=== PATIENT | female | born 1955 | race Caucasian/White ===

== ENCOUNTER 2022-07-17 17:34 | Inpatient (IN) | payer OTHER ==
[~2022-07-17] VITALS: Ht 154.9 cm; Wt 94.8 kg
--- NOTE | 2022-07-17 17:40 | NUR ---
Dr Samaniego at the bedside for MSE.
[2022-07-17] MEDS ORDERED: IV NORMAL SALINE 1000 ML BAG IV ONE (17:45)
[2022-07-17 18:11] LABS: HEMATOCRIT 36.5 % (31.2-41.9); MEAN CORPUSCULAR HEMOGLOBIN 30.6 uug (24.7-32.8); MEAN CORPUSCULAR VOLUME 93.6 fL (75.5-95.3); PLATELET COUNT (AUTO) 245 K/uL (179-408)
[2022-07-17 18:22] LABS: CARBON DIOXIDE 25 mmol/L (21-32); CHLORIDE 106 mmol/L (98-107); CREATININE 1.2 mg/dL (0.6-1.3); GLUCOSE 166 mg/dL (74-106); POTASSIUM 3.6 mmol/L (3.5-5.1); UREA NITROGEN, BLOOD 28 mg/dL (7-18)
[2022-07-17] MEDS ORDERED: CLON2TAB11 PO (18:22)
[2022-07-17] MEDS ORDERED: PROP10TA10 PO (18:22)
[2022-07-17] MEDS ORDERED: CYAN250010 PO (18:22)
[2022-07-17] MEDS ORDERED: OMEP40CA21 PO (18:22)
[2022-07-17] MEDS ORDERED: GLUC1TAB65 PO (18:22)
[2022-07-17] MEDS ORDERED: GABA800T11 PO (18:22)
[2022-07-17] MEDS ORDERED: SERT100T PO (18:22)
[2022-07-17] MEDS ORDERED: QUET400T PO (18:22)
[2022-07-17] MEDS ORDERED: MILN50TA PO (18:22)
[2022-07-17] MEDS ORDERED: ERGO400C PO (18:22)
[2022-07-17] MEDS ORDERED: IBUP-2314 PO (18:22)
[2022-07-17] MEDS ORDERED: LEVO125T68 PO (18:22)
[2022-07-17] MEDS ORDERED: TOPI200T16 PO (18:22)
[2022-07-17 18:28] LABS: ETHANOL < 3 MG/DL (0-0)
[2022-07-17 18:35] LABS: THYROID STIMULATING HORMONE 1.698 mIU/mL (0.358-3.740)
[2022-07-17 18:39] LABS: ALANINE AMINOTRANSFERASE 34 U/L (14-59); ALKALINE PHOSPHATASE 78 U/L (50-136); ASPARTATE AMINOTRANSFERASE 28 U/L (15-37); BILIRUBIN,DIRECT 0.2 mg/dL (0.0-0.2); BILIRUBIN,TOTAL 0.4 mg/dL (0.2-1.0); TOTAL PROTEIN, SERUM 7.2 g/dL (6.4-8.2)
--- NOTE | 2022-07-17 18:40 | NUR ---
Pt is out of ER for Ct scan.
[2022-07-17 18:52] LABS: ACETAMINOPHEN < 2.0 ug/mL (10-30)
--- NOTE | 2022-07-17 18:53 | NUR ---
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
[2022-07-17] MEDS ORDERED: levoFLOXacin 750 MG/D5W 150 ML PIGGYBACK IV ONE (19:00)
[2022-07-17] MEDS ORDERED: levoFLOXacin 750MG/D5W 150 ML IV ONE (19:03)
--- NOTE | 2022-07-17 19:12 | NUR ---
Per Dr Alvarez, patient not medically cleared for psych admission. Patient will be admitted for Pneumonia
[2022-07-17 19:46] LABS: *AMPHETAMINE, URINE NEGATIVE (NEGATIVE); *CANNABINOID, URINE NEGATIVE (NEGATIVE); *COCCAINE, URINE NEGATIVE (NEGATIVE); *PHENCYCLIDINE SCREEN,URINE NEGATIVE (NEGATIVE)
[2022-07-17 19:50] LABS: *BILIRUBIN,URIN NEGATIVE (NEGATIVE); *CLARITY,URINE CLEAR (CLEAR); *COLOR,URINE YELLOW (YELLOW); *KETONES,URINE NEGATIVE (NEGATIVE); *UROBILINOGEN,URINE 0.2 E.U./dl (NORMAL); LEUKOCYTE ESTERASE ,URINE TRACE (NEGATIVE); NITRITE, URINE NEGATIVE (NEGATIVE); PH,URINE 6.5 (5.0-8.0); UGLUCOSE NEGATIVE (NEGATIVE)
[2022-07-17 19:52] LABS: *BLOOD, URINE TRACE (NEGATIVE)
[2022-07-17 20:16] LABS: BACTERIA,URINE NONE SEEN /HPF (NONE SEEN); YEAST,URINE FEW /HPF (NONE SEEN)
--- NOTE | 2022-07-17 20:30 | NUR ---
Patient c/o dyspnea satting @94% on RA. MD notified. Patient placed on 2L 02 via NC
--- NOTE | 2022-07-17 22:02 | NUR ---
called [facility] for panel call. awaiting for Silke Marte NP to call back
--- NOTE | 2022-07-17 22:11 | NUR ---
Jocelyn PANTOMIMIST - educational manager.
--- NOTE | 2022-07-17 22:12 | NUR ---
Patient has been accepted by [facility]
[2022-07-17] MEDS ORDERED: QUETIAPINE FUMARATE 200 MG TABLET ONE (22:23)
[2022-07-17] MEDS ORDERED: GABAPENTIN 400 MG CAPSULE ONE (22:23)
--- NOTE | 2022-07-17 22:28 | NUR ---
Per patient's Daughter, hold patient home meds (Savella and clonazepam). As per patient's psych .
[2022-07-17] MEDS ORDERED: QUETIAPINE FUMARATE 25 MG TABLET PO ONE (22:30)
[2022-07-17] MEDS ORDERED: GABAPENTIN 400 MG CAPSULE PO ONE (22:30)
--- NOTE | 2022-07-17 22:44 | NUR ---
Endorsed to Grzegorz MENDEZ m/s
[2022-07-17] MEDS ORDERED: ACETAMINOPHEN 325 MG TABLET PO PRN (23:00)
[2022-07-17] MEDS ORDERED: ONDANSETRON 4 MG/2 ML VIAL IV PRN (23:00)
[2022-07-17] MEDS ORDERED: ZOLPIDEM 5 MG TABLET PO PRN (23:00)
[2022-07-17] MEDS ORDERED: REMEDY ESSENTIAL ZINC PASTE 113 GM TP PRN (23:00)
[2022-07-17] MEDS ORDERED: MAGNESIUM HYDROXIDE 30 ML LIQUID UDC PO PRN (23:00)
--- NOTE | 2022-07-17 23:05 | NUR ---
Pt. admitted to M/S room 304 , under care of Dr. Banks Belongs List completed Kimberly RN and Grzegorz RN aware of partient's arrival
--- NOTE | 2022-07-17 23:15 | NUR ---
PATIENT ADMITTED FROM ER IN STABLE CONDITION. GENTLY TRANSFERRED TO BED MADE COMFORTABLE. ALL NEEDS MET AND ATTENDED. NO SOB OR RESP DISTRESS NOTED. ALL BELONGINGS INVENTORIED.
[2022-07-18] MEDS: ENOXAPARIN SODIUM 40 MG/0.4 ML DISP.SYRIN SQ SCH ×2 (01:49→21:47)
[2022-07-18] MEDS ORDERED: CEFEPIME HCL 1 G VIAL ONE (04:44)
[2022-07-18] MEDS ORDERED: CEFEPIME HCL 1 G in IV DEXTROSE 5% 50 ML IV SCH (06:00)
--- NOTE | 2022-07-18 06:21 | NUR ---
MEDICATION RECEIVED FROM SURVEY SUPERINTENDENT CEFEPIME 2G VIAL FOR Q8H WAS DUE AT 6AM. MEDICATION DILUTED BUT UNFORTUNATELY D/C'D BY AND CHANGED THE TIME TO Q12HRS AND IS DUE NOW AT 9AM. MEDICATION WASTED AND WITNESSED BY CHARGE NURSE ESTEFANÍA. WILL ENDORSE TO DAY SHIFT RN
[2022-07-18 07:36] LABS: HEMATOCRIT 31.8 % (31.2-41.9); MEAN CORPUSCULAR HEMOGLOBIN 31.3 uug (24.7-32.8); PLATELET COUNT (AUTO) 223 K/uL (179-408)
--- NOTE | 2022-07-18 07:47 | NUR ---
Awake, alert, oriented x 4. Room air. Denies pain or shortness of breath
[2022-07-18 07:56] LABS: BILIRUBIN,TOTAL 0.4 mg/dL (0.2-1.0); CREATININE 1.1 mg/dL (0.6-1.3); MAGNESIUM 1.8 mg/dL (1.8-2.4); PHOSPHOROUS 3.3 mg/dL (2.5-4.9); POTASSIUM 3.6 mmol/L (3.5-5.1); TOTAL PROTEIN, SERUM 6.3 g/dL (6.4-8.2)
[2022-07-18 08:01] LABS: THYROID STIMULATING HORMONE 1.383 mIU/mL (0.358-3.740)
[2022-07-18] MEDS ORDERED: CEFEPIME HCL 2 G in IV DEXTROSE 5% 100 ML IV SCH (09:00)
[2022-07-18] MEDS ORDERED: PANTOPRAZOLE SODIUM 40 MG VIAL IV SCH (09:00)
--- NOTE | 2022-07-18 09:00 | NUR ---
Room air O2 sat 88-90%, placed O2 at 2L/NC with O2 sat of 95-97%.
[2022-07-18 12:00] VITALS: BP 106/62
[2022-07-18] MEDS ORDERED: AZITHROMYCIN IV 500 MG in IV DEXTROSE 5% 250 ML IV SCH (12:00)
[2022-07-18] MEDS: IBUPROFEN 400 MG TABLET PO PRN (12:23)
--- NOTE | 2022-07-18 12:25 | NUR ---
Reports of headache, Ibuprofen given with relief.
[2022-07-18] MEDS: GUAIFENESIN/DEXTROMETHORPHAN 5 ML UDC PO PRN (13:30)
--- NOTE | 2022-07-18 13:30 | NUR ---
With bout of cough, Robitussin DM given with relief
[2022-07-18 16:00] VITALS: BP 101/60
--- NOTE | 2022-07-18 16:51 | NUR ---
Daughter at bedside, expressed concern over condition and medication, discussed plan of care.
[2022-07-18] MEDS ORDERED: GABAPENTIN PO SCH (17:00)
[2022-07-18] MEDS: GABAPENTIN 400 MG CAPSULE PO SCH (17:22)
[2022-07-18] MEDS: SERTRALINE HCL 100 MG TABLET PO SCH (17:22)
[2022-07-18] MEDS ORDERED: POTA10TA10 PO (17:32)
--- NOTE | 2022-07-18 18:48 | NUR ---
Incontinence care done. Repositioned in bed comfortably. O2 at 2L/NC.
[2022-07-18 19:57] VITALS: BP 98/57
[2022-07-18] MEDS ORDERED: QUETIAPINE FUMARATE 400 MG PO SCH (21:00)
[2022-07-18] MEDS: CEFTRIAXONE 1 G in IV DEXTROSE 5% 50 ML IV SCH (21:30)
[2022-07-18] MEDS: QUETIAPINE FUMARATE 200 MG TABLET PO SCH (21:30)
[2022-07-18] MEDS: TOPIRAMATE 100 MG TABLET PO SCH (21:30)
[2022-07-18] MEDS: PROPRANOLOL HCL 10 MG TABLET PO SCH (21:31)
[2022-07-19 04:15] VITALS: BP 110/62
--- NOTE | 2022-07-19 05:53 | NUR ---
SHIFT NOTE: PT IS ALERT AND ORIENTED X4 AM CARE DONE ORDERED NO SIGNS OF RESPIRATORY DISTRESS NOTED. PATIENT DENIES PAIN PATIENT TURNED AND REPOSITIONED ORDERED. MEDICATION GIVEN ORDERED NO SIGNS OF ADVERSE REACTION FROM MEDICATION WILL ENDORSE TO AM NURSE AND FALL ALONG WITH SAFETY MAINTAINED THROUGHOUT SHIFT.
[2022-07-19] MEDS: PROPRANOLOL HCL 10 MG TABLET PO SCH ×3 (06:00→21:38)
[2022-07-19] MEDS: LEVOTHYROXINE SODIUM 125 MCG TABLET PO SCH (06:31)
[2022-07-19] MEDS: PANTOPRAZOLE SODIUM 40 MG TABLET.DR PO SCH (06:31)
[2022-07-19] MEDS ORDERED: FLUCONAZOLE 200 MG/NS 100ML IV 100 MG in PREMIXED 1 EACH IV ONE (08:04)
[2022-07-19 08:30] VITALS: BP 124/62
[2022-07-19] MEDS: DOXYCYCLINE HYCLATE IV 100 MG in IV DEXTROSE 5% 100 ML IV SCH ×2 (08:48→21:25)
[2022-07-19] MEDS: SERTRALINE HCL 100 MG TABLET PO SCH (08:49)
[2022-07-19] MEDS: CHOLECALCIFEROL 400 UNITS TABLET PO SCH (08:49)
[2022-07-19] MEDS: GABAPENTIN 400 MG CAPSULE PO SCH ×3 (08:49→17:34)
[2022-07-19] MEDS: CYANOCOBALAMIN 1,000 MCG TABLET PO SCH (08:49)
[2022-07-19] MEDS: TOPIRAMATE 100 MG TABLET PO SCH ×2 (08:49→21:25)
[2022-07-19] MEDS ORDERED: Medication Not On Formulary EA (Cholecalciferol (Vitamin D3) (Vitamin D3) 1 CAP) PO SCH (09:00)
[2022-07-19] MEDS ORDERED: MICAFUNGIN SODIUM 100 MG in IV NORMAL SALINE 100 ML IV ONE (09:00)
[2022-07-19] MEDS ORDERED: [UNRECOGNIZED DRUG - OTHER] PO SCH (09:00)
[2022-07-19] MEDS ORDERED: Medication Not On Formulary EA (Cyanocobalamin (Vitamin B-12) (Vitamin B12) 1,000 MCG) PO SCH (09:00)
[2022-07-19] MEDS: GUAIFENESIN/DEXTROMETHORPHAN 5 ML UDC PO PRN (09:02)
[2022-07-19 11:07] VITALS: BP 105/57
[2022-07-19] MEDS: POTASSIUM CHLORIDE 10 MEQ TAB.PRT.SR PO SCH ×2 (11:40→17:34)
[2022-07-19] MEDS: IBUPROFEN 400 MG TABLET PO PRN (11:40)
[2022-07-19 15:09] VITALS: BP 105/53
[2022-07-19 20:10] VITALS: BP 112/68
[2022-07-19] MEDS: CEFTRIAXONE 1 G in IV DEXTROSE 5% 50 ML IV SCH (21:24)
[2022-07-19] MEDS: QUETIAPINE FUMARATE 200 MG TABLET PO SCH (21:25)
[2022-07-19] MEDS: ENOXAPARIN SODIUM 40 MG/0.4 ML DISP.SYRIN SQ SCH (21:32)
[2022-07-20 04:28] VITALS: BP 113/62
--- NOTE | 2022-07-20 05:21 | NUR ---
SHIFT NOTE: RECEIVED REPORT FROM AM NURSE SACHI PT IS ALERT AND ORIENTED X4 PT STATES" I AM FEELING MUCH BETTER INFORMED PATIENT SHE IS LOOKING BETTER NO SIGNS OF RESPIRATORY DISTRESS NOTED. PATIENT DENIES PAIN. MEDICATION GIVEN ORDERED NO SIGNS OF RESPIRATORY DISTRESS NOTED. PLAN FOR PATIENT DISCHARGE TO SNF. PT SON WANTS A DR RODRIGUEZ TO CALL HIM AT [phone]. PERIWICK IN PLACE DRAINING CLEAR YELLOW URINE AND FALL AND SAFETY PRECAUTION MAINTAINED WILL ENDORSE TO AM NURSE.
[2022-07-20] MEDS: PANTOPRAZOLE SODIUM 40 MG TABLET.DR PO SCH (06:10)
[2022-07-20] MEDS: LEVOTHYROXINE SODIUM 125 MCG TABLET PO SCH (06:11)
[2022-07-20] MEDS: PROPRANOLOL HCL 10 MG TABLET PO SCH ×3 (06:11→22:13)
[2022-07-20 07:05] LABS: HEMATOCRIT 31.3 % (31.2-41.9); MEAN CORPUSCULAR HEMOGLOBIN 31.6 uug (24.7-32.8); MEAN CORPUSCULAR VOLUME 92.9 fL (75.5-95.3); PLATELET COUNT (AUTO) 217 K/uL (179-408)
[2022-07-20 07:27] LABS: BILIRUBIN,TOTAL 0.3 mg/dL (0.2-1.0); POTASSIUM 3.5 mmol/L (3.5-5.1); TOTAL PROTEIN, SERUM 6.4 g/dL (6.4-8.2)
[2022-07-20 08:00] VITALS: BP 120/71
--- NOTE | 2022-07-20 08:00 | NUR ---
gave report to am nurse Braulio informed her that patient iv hurts stated patient stop fluids and informed call for midline and assist patient to toilet observe gait she walks with a cane. no signs of distress noted.
--- NOTE | 2022-07-20 08:03 | NUR ---
Received pt. lying in bed awake, alert and oriented. No signs of distress with O2 inhalation at 2 lpm via nasal cannula saturating at 98%. Observed accordingly.
[2022-07-20] MEDS: SERTRALINE HCL 100 MG TABLET PO SCH (08:28)
[2022-07-20] MEDS: POTASSIUM CHLORIDE 10 MEQ TAB.PRT.SR PO SCH ×2 (08:28→17:01)
[2022-07-20] MEDS: GUAIFENESIN/DEXTROMETHORPHAN 5 ML UDC PO PRN ×2 (08:28→14:18)
[2022-07-20] MEDS: TOPIRAMATE 100 MG TABLET PO SCH ×2 (08:28→20:10)
[2022-07-20] MEDS: CYANOCOBALAMIN 1,000 MCG TABLET PO SCH (08:28)
[2022-07-20] MEDS: GABAPENTIN 400 MG CAPSULE PO SCH ×3 (08:28→17:01)
[2022-07-20] MEDS: IBUPROFEN 400 MG TABLET PO PRN ×2 (08:29→17:01)
[2022-07-20] MEDS: CHOLECALCIFEROL 400 UNITS TABLET PO SCH (08:29)
[2022-07-20] MEDS: DOXYCYCLINE HYCLATE IV 100 MG in IV DEXTROSE 5% 100 ML IV SCH ×2 (08:29→20:09)
--- NOTE | 2022-07-20 10:00 | NUR ---
Morning care done, encouraged patient to turn from side to side. Changed purewick catheter connected to wall suction. Patient tolerated medications and food well. Observed accordingly
[2022-07-20 12:03] VITALS: BP 119/58
--- NOTE | 2022-07-20 14:00 | NUR ---
No acute changes from morning shift. Patient was seen by PT in the morning, doing simple exercises and walking.
[2022-07-20 16:00] VITALS: BP 117/79
[2022-07-20 20:00] VITALS: BP 109/69
[2022-07-20] MEDS: CEFTRIAXONE 1 G in IV DEXTROSE 5% 50 ML IV SCH (20:09)
[2022-07-20] MEDS: ENOXAPARIN SODIUM 40 MG/0.4 ML DISP.SYRIN SQ SCH (20:14)
[2022-07-20] MEDS: QUETIAPINE FUMARATE 200 MG TABLET PO SCH (20:34)
[2022-07-21 04:00] VITALS: BP 118/46
[2022-07-21] MEDS: PANTOPRAZOLE SODIUM 40 MG TABLET.DR PO SCH (06:05)
[2022-07-21] MEDS: LEVOTHYROXINE SODIUM 125 MCG TABLET PO SCH (06:05)
[2022-07-21] MEDS: PROPRANOLOL HCL 10 MG TABLET PO SCH ×2 (06:05→14:00)
[2022-07-21] MEDS: DOXYCYCLINE HYCLATE IV 100 MG in IV DEXTROSE 5% 100 ML IV SCH (09:24)
[2022-07-21] MEDS: TOPIRAMATE 100 MG TABLET PO SCH (09:25)
[2022-07-21] MEDS: GABAPENTIN 400 MG CAPSULE PO SCH ×2 (09:25→13:00)
[2022-07-21] MEDS: CHOLECALCIFEROL 400 UNITS TABLET PO SCH (09:25)
[2022-07-21] MEDS: CYANOCOBALAMIN 1,000 MCG TABLET PO SCH (09:25)
[2022-07-21] MEDS: SERTRALINE HCL 100 MG TABLET PO SCH (09:25)
[2022-07-21] MEDS: POTASSIUM CHLORIDE 10 MEQ TAB.PRT.SR PO SCH (09:25)
[2022-07-21 12:00] VITALS: BP 96/64
--- NOTE | 2022-07-21 13:30 | NUR ---
pt is discharge. pt aox4. ambulatory with [facility]. no sob noted. pt on 2l nc saturating 94-95. give report to anna davis of [facility]. all belongings accounted for. Left upper arm midline will left in placed. pt will continue antibiotic tx till 07/25/22.exit care provided. all belongings accounted for. pt will be pick up worker by ambulance.
[2022-07-21] MEDS: GUAIFENESIN/DEXTROMETHORPHAN 5 ML UDC PO PRN (13:46)
== END 2022-07-21 13:50 | DRG 871 ==
LOC: ER 17:49 → MEDSURG3 22:16
PROVIDERS: ADMIT Nurse Practitioner Acute Care; ATTEND Internal Medicine
PROC: 05HF33Z Insertion of Infusion Device into Left Cephalic Vein, Percutaneous Approach (ICD-10-PCS; principal; 2022-07-19)
DX: A41.9 Sepsis, unspecified organism (principal); J18.9 Pneumonia, unspecified organism; N17.0 Acute kidney failure with tubular necrosis; N39.0 Urinary tract infection, site not specified; F33.3 Major depressive disorder, recurrent, severe with psychotic symptoms; F20.0 Paranoid schizophrenia; R32 Unspecified urinary incontinence; B96.89 Other specified bacterial agents as the cause of diseases classified elsewhere; G62.9 Polyneuropathy, unspecified; R73.03 Prediabetes; E66.9 Obesity, unspecified; Z68.39 Body mass index [BMI] 39.0-39.9, adult; Z20.822 Contact with and (suspected) exposure to COVID-19; M79.7 Fibromyalgia; I10 Essential (primary) hypertension; E78.5 Hyperlipidemia, unspecified; M54.32 Sciatica, left side; M54.31 Sciatica, right side; M19.90 Unspecified osteoarthritis, unspecified site; Z91.51 Personal history of suicidal behavior; Z91.81 History of falling; Z79.899 Other long term (current) drug therapy; Z87.01 Personal history of pneumonia (recurrent); Z87.11 Personal history of peptic ulcer disease; Z88.5 Allergy status to narcotic agent; Z87.19 Personal history of other diseases of the digestive system
CPT/HCPCS: 36415; 70450; 71045; 83735; 84100; 84443; 85025; 85730; 86803; 87040; 87806; 93005; A4663; C9113; G0378; G0480; J0456; J0692; J0696; J1650; J1956; J2248; J3490; J7040; J7050